=== PATIENT | female | born 1955 | race Caucasian/White ===

== ENCOUNTER 2016-12-02 07:05 | Day surgery (SDC) | payer OTHER ==
[~2016-12-02] VITALS: Ht 167.6 cm; Wt 83.0 kg
[~2016-12-02 07:05] MED LIST: ESTR1PAT13 TD; FLUC150T3 PO; NITR50CA4 PO; Sodium Chloride LOK Flush 10 mL Syringe IV PRN; fentaNYL-PF 50 mCg/mL 2 mL Inj IVPUSH PRN
[2016-12-02 07:44] VITALS: BP 108/63; PULSE 51; RESP 14; O2SAT 100
[2016-12-02] MEDS ORDERED: ATOR20TA PO (07:47)
[2016-12-02] MEDS: 0.9% Sodium Chloride 1,000 ML IV SCH ×2 (08:13→08:31)
[2016-12-02 08:37] VITALS: BP 102/61; PULSE 62; RESP 14; O2SAT 98
[2016-12-02 08:44] VITALS: BP 102/66; PULSE 67; RESP 14; O2SAT 99
[2016-12-02 08:54] VITALS: BP 97/54; PULSE 60; RESP 14; O2SAT 99
--- NOTE | 2016-12-02 08:57 | ENDO ---
[address] [address] ENDOSCOPY PROCEDURE PATIENT: YAMEL CHEUNG : 1955 MR#: [id number] ADMIT: 12/02/2016 JOB ID: [id number] DATE: 12/02/2016 TYPE OF OPERATION: Colonoscopy with snare polypectomy. PREOPERATIVE DIAGNOSIS(ES): History of colon polyps. POSTOPERATIVE DIAGNOSIS(ES): 1. Ascending and sigmoid diverticulosis. 2. A 4 mm pedunculated polyp removed by cold snare polypectomy. ANESTHESIA: 1. Fentanyl 75 mcg. 2. Versed 3 mg IV administered. COMPLICATIONS: None. BLOOD LOSS: Minimal. DESCRIPTION OF PROCEDURE: After risks and benefits were explained to the patient, informed consent was obtained. After anesthesia administered, colonoscope was then inserted from the rectum to the cecum. Mucosa carefully examined. Prep of the patient was fair. After the procedure was done, the scope was withdrawn and procedure terminated. FINDINGS: Upon inspection of the anus, no masses, hemorrhoids, ulcers, or fissures that were seen. Throughout the entire examination, there is a 4 mm pedunculated polyp removed by cold snare polypectomy. There is also ascending and sigmoid diverticulosis. Retroflexion was normal. IMPRESSIONS: 1. Ascending sigmoid diverticulosis. 2. A 4 mm pedunculated polyp removed by cold snare polypectomy. RECOMMENDATION: 1. Await pathology results. 2. Repeat colonoscopy in five years.
--- NOTE | 2016-12-05 15:25 | PATH ---
SURGICAL PATHOLOGY Attending Physician:Jaems Dillon MD CASE STATUS: Signed Out PATIENT NAME: COURT CHEUNG PID: [id number] : 1955 DATE COLLECTED:12/02/2016 15:48 SPECIMEN: Colon, Biopsy CLINICAL HISTORY: 1).SIGMOID COLON POLYP FINAL DIAGNOSIS: 1.SIGMOID COLON POLYP: SMALL FRAGMENT OF VEGETABLE MATERIAL. NO COLONIC TISSUE IDENTIFIED. ICD10 CODE K63.5 GROSS DESCRIPTION: The specimen is received in one formalin filled container labeled with the patient's name, sublabeled "sigmoid colon polyp" and consists of a 0.1 CM portion of tissue or possible debris the specimen is entirely submitted in one cassette. 12/02/2016 DAC MICRO DESCRIPTION: See diagnosis. ICD-9 CODES: CPT CODES: 1: [address] Lui MD [facility] [place] [address] Technical component performed at [facility], [facility] [address], [place], [address]
== END 2016-12-02 23:59 | disposition home or self-care (01) ==
LOC: END 07:05
PROVIDERS: ATTEND Internal Medicine Gastroenterology
DX: Z12.11 Encounter for screening for malignant neoplasm of colon (principal); K63.5 Polyp of colon; K57.30 Diverticulosis of large intestine without perforation or abscess without bleeding; Z86.010 Personal history of colon polyps; Z80.0 Family history of malignant neoplasm of digestive organs
CPT/HCPCS: 45385; G0500; J2250; J3010; J7030